=== PATIENT | female | born 2000 | race Two or more races ===

== ENCOUNTER 2023-06-11 09:18 | Outpatient (CLI) | payer OTHER | END 2023-06-11 09:22 | disposition home or self-care (01) | LOC: PRENATAL 09:18 | PROVIDERS: ATTEND Obstetrics & Gynecology Maternal & Fetal Medicine | DX: O36.80X0 Pregnancy with inconclusive fetal viability, not applicable or unspecified (principal); Z36.9 Encounter for antenatal screening, unspecified; Z36.82 Encounter for antenatal screening for nuchal translucency; Z3A.11 11 weeks gestation of pregnancy ==

== ENCOUNTER 2023-11-03 11:51 | Outpatient (CLI) | payer OTHER | END 2023-11-03 11:52 | disposition home or self-care (01) | LOC: PRENATAL 11:51 | PROVIDERS: ATTEND Obstetrics & Gynecology Maternal & Fetal Medicine | DX: O26.843 Uterine size-date discrepancy, third trimester (principal); O36.8130 Decreased fetal movements, third trimester, not applicable or unspecified; O36.0930 Maternal care for other rhesus isoimmunization, third trimester, not applicable or unspecified; Z3A.32 32 weeks gestation of pregnancy ==

== ENCOUNTER 2023-12-02 16:29 | Inpatient (IN) | payer OTHER ==
[~2023-12-02] VITALS: Ht 157.5 cm; Wt 69.4 kg
[2023-12-02] MEDS ORDERED: BETAMETHASONE ACETATE,SOD PHOS 30 MG/5 ML ML ONE (16:51)
[2023-12-02] MEDS ORDERED: CLINDAMYCIN PHOSPHATE 150 MG/ML (900mg) ONE (16:53)
[2023-12-02 17:03] VITALS: BP 108/72
[2023-12-02] MEDS ORDERED: PRENATABS RX T1 EACH PO (17:37)
[2023-12-02] MEDS ORDERED: CLINDAMYCIN PHOSPHATE 900 MG in 0.9 % SODIUM CHLORIDE 100 ML IV SCH (17:45)
[2023-12-02] MEDS ORDERED: BETAMETHASONE ACETATE,SOD PHOS 30 MG/5 ML ML IM NR (17:45)
[2023-12-02] MEDS ORDERED: RINGERS SOLUTION,LACTATED 1,000 ML IV SCH (17:45)
[2023-12-02 17:48] LABS: HEMATOCRIT 34.5 % (36.0-45.00); HEMOGLOBIN 11.6 g/dL (12.0-15.00); MEAN CELL VOLUME 89.2 fL (80.00-100.00); MEAN CORPUSCULAR HGB CONC 33.7 g/dl (32.0-36.0); PLATELET COUNT 229 K/uL (150-450); RED BLOOD COUNT 3.86 M/uL (4.00-6.00); RED CELL DISTRIBUTION WIDTH 12.8 % (11.5-14.5)
[2023-12-02 17:48] LABS: PH,URINE 6.5 (5.0-8.0); URINE APPEARANCE Clear; URINE BILIRRUBIN Negative (NEGATIVE); URINE BLOOD Negative; URINE COLOR Yellow; URINE GLUCOSE Negative (NEGATIVE); URINE KETONE Negative (NEGATIVE); URINE LEUKOCYTE Negative; URINE NITRATE Negative; URINE PROTEIN Negative (NEGATIVE); URINE UROBILINOGEN 0.2 E.U./dl
[2023-12-02 17:49] LABS: URINE BACTERIA 185.1 uL (0.0-1933); URINE EPITHELIAL CELLS 16.3 uL (0.0-38.8)
[2023-12-02 17:50] LABS: URINE RBC 1.6 uL (0.0-20.8)
[2023-12-02 18:03] LABS: INR < 0.93; PARTIAL THROMBOPLASTIN TIME 26.5 SECONDS (22.0-34.0); PROTHROMBIN TIME 10.1 SECONDS (9.0-11.5)
[2023-12-02 18:10] LABS: ALBUMIN 3.3 gm/dL (3.4-5.0); BILIRUBIN TOTAL 0.6 mg/dL (0.3-1.2); CALCIUM 9.9 mg/dL (8.5-10.1); CREATININE SERUM 0.6 mg/dL (0.55-1.02); GFR 125.01; GLOBULINA 4.1 G/DL (2.4-3.5); POTASSIUM 4.49 mEq/L (3.5-5.1); TOTAL PROTEIN 7.4 gm/dL (6.4-8.2)
[2023-12-02 19:07] VITALS: BP 95/59
[2023-12-02 23:11] VITALS: BP 97/60
[2023-12-03 04:25] VITALS: BP 102/64
[2023-12-03 06:17] VITALS: BP 95/66; O2SAT 97
[2023-12-03 11:02] VITALS: BP 115/71
[2023-12-03 14:00] VITALS: BP 113/71
[2023-12-03 16:52] VITALS: BP 103/60
[2023-12-03] MEDS ORDERED: BETAMETHASONE ACETATE,SOD PHOS 30 MG/5 ML ML IM NR (17:45)
[2023-12-03 20:20] VITALS: BP 103/66
[2023-12-04] VITALS: BP 111/66
[2023-12-04 08:01] VITALS: BP 92/61
[2023-12-04] MEDS ORDERED: PNV,CALCIUM 72/IRON/FOLIC ACID 1 TAB TABLET PO SCH (09:12)
[2023-12-04 13:24] VITALS: BP 106/67
[2023-12-04 18:14] VITALS: BP 108/67
[2023-12-05] VITALS: BP 104/64
[2023-12-05 07:45] VITALS: BP 119/54
[2023-12-05 11:07] VITALS: BP 102/52
[2023-12-05] MEDS ORDERED: GENTAMICIN SULFATE 40 MG/ML VIAL IV SCH (12:30)
[2023-12-05] MEDS ORDERED: CLINDAMYCIN PHOSPHATE 150 MG/ML (900mg) IV SCH (12:30)
[2023-12-05] MEDS ORDERED: OXYTOCIN 10 UNITS/ML VIAL ONE ×2 (12:58→15:12)
[2023-12-05] MEDS ORDERED: ERYTHROMYCIN BASE OPHT 1GM EACH TUBE OP ONE ×2 (12:58→13:45)
[2023-12-05] MEDS ORDERED: OXYTOCIN 10 UNITS/ML VIAL IV ONE (13:45)
[2023-12-05] MEDS ORDERED: MEPERIDINE HCL/PF 50 MG/ML VIAL IM PRN (14:15)
[2023-12-05] MEDS ORDERED: NAPROXEN 500 MG TABLET PO PRN (14:15)
[2023-12-05] MEDS ORDERED: PROMETHAZINE HCL 50 MG/ML AMPUL IM PRN (14:15)
[2023-12-05] MEDS ORDERED: OXYTOCIN 1,000 ML IV SCH (14:15)
[2023-12-05 16:39] VITALS: BP 121/75
[2023-12-05] MEDS ORDERED: DOCUSATE SODIUM 100MG CAP PO SCH (17:00)
[2023-12-05] MEDS ORDERED: SIMETHICONE 125 MG CAPSULE PO SCH (18:00)
[2023-12-05 20:37] LABS: HEMATOCRIT 33.2 % (36.0-45.00); MEAN CELL VOLUME 89.7 fL (80.00-100.00); MEAN CORPUSCULAR HEMOGLOBIN 29.7 pg (27.00-32.0); PLATELET COUNT 213 K/uL (150-450); RED CELL DISTRIBUTION WIDTH 12.9 % (11.5-14.5)
[2023-12-06 01:00] VITALS: BP 119/67
[2023-12-06] MEDS ORDERED: ACETAMINOPHEN WITH CODEINE 1 UDTAB TABLET PO PRN (06:00)
[2023-12-06 11:27] VITALS: BP 106/69
[2023-12-06 15:19] VITALS: BP 90/60
[2023-12-07 01:00] VITALS: BP 109/74
[2023-12-07 09:15] VITALS: BP 102/66
[2023-12-07 13:17] VITALS: BP 111/70
[2023-12-07 17:44] VITALS: BP 116/72
[2023-12-08] VITALS: BP 106/72
[2023-12-08 08:00] VITALS: BP 108/71
[2023-12-08] MEDS ORDERED: Tylenol #3 PO (09:02)
[2023-12-08] MEDS ORDERED: NAPR500T14 PO (09:02)
== END 2023-12-08 14:16 | disposition home or self-care (01) | DRG 786 ==
LOC: OB/GYN 16:29 → LDR 16:29 → OB/GYN 12-03 10:46
PROVIDERS: Obstetrics & Gynecology; ADMIT Obstetrics & Gynecology; ATTEND Obstetrics & Gynecology
PROC: 4A1HXCZ Monitoring of Products of Conception, Cardiac Rate, External Approach (ICD-10-PCS; 2023-12-02)
PROC: BY4FZZZ Ultrasonography of Third Trimester, Single Fetus (ICD-10-PCS; 2023-12-03)
PROC: 10D00Z1 Extraction of Products of Conception, Low, Open Approach (ICD-10-PCS; principal; 2023-12-05 12:00)
DX: O36.8330 Maternal care for abnormalities of the fetal heart rate or rhythm, third trimester, not applicable or unspecified (principal); O60.14X0 Preterm labor third trimester with preterm delivery third trimester, not applicable or unspecified; O36.8130 Decreased fetal movements, third trimester, not applicable or unspecified; O26.843 Uterine size-date discrepancy, third trimester; Z3A.36 36 weeks gestation of pregnancy; Z37.0 Single live birth; Z20.822 Contact with and (suspected) exposure to COVID-19